=== PATIENT | male | born 1955 | race Caucasian/White ===

== ENCOUNTER 2016-12-02 08:51 | Outpatient (CLI) | payer BC ==
[2016-12-02] MEDS ORDERED: Gadobenate Dimeglumine 529 MG/1 ML (20ML VIAL) ONE (14:00)
--- NOTE | 2016-12-02 15:00 | MRI ---
BRAIN MRI WITH AND WITHOUT CONTRAST: COMPARISON: 11/02/16. CLINICAL HISTORY: Brain lab protocol. FINDINGS: Redemonstration of pathologic enhancement involving the medial right temporal lobe measuring 2.2 cm AP x 1.7 cm transverse. Developmental venous anomaly of the right parietooccipital region present. Cavitary encephalomalacia of the anterior pole right temporal lobe is redemonstrated with adjacent d ural-based enhancement, predominantly medially. A component of this linear enhancement may be relat ed to postoperative enhancement. IMPRESSION: Pathologic enhancement, intraaxial in location involving the medial right temporal lobe compatible w ith malignancy. This does reside adjacent postoperative resection cavity of the anterior pole right temporal lobe. POS: [facility]
== END 2016-12-02 08:52 | disposition home or self-care (01) ==
LOC: MRI 08:51
PROVIDERS: ATTEND Neurological Surgery
DX: C71.9 Malignant neoplasm of brain, unspecified (principal)
CPT/HCPCS: 70553; A9579

== ENCOUNTER 2017-08-09 08:31 | Outpatient (CLI) | payer BC ==
[2017-08-09] MEDS ORDERED: Gadobenate Dimeglumine 529 MG/1 ML (20ML VIAL) ONE (12:21)
--- NOTE | 2017-08-09 12:33 | MRI ---
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 Six month followup. COMPARISON: Brain MRI from [facility] [place] on 04/04/2017 and brain MRI from [facility] fro m 12/02/2016 and 11/02/2016. TECHNIQUE: A brain MRI is performed with and without intravenous Gadolinium administration. Multisequential, mu ltiplanar imaging is performed. FINDINGS: Axial gradient echo sequence demonstrates hemosiderin deposition at the resection site, compatible wi th remote blood products. Acute hemorrhage is not appreciated. There are stable post surgical mcgowan es involving the right calvarium. Redemonstration of fluid signal intensity just deep to the calvari al resection, compatible with nonspecific postoperative extraaxial fluid. There is redemonstration o f malacic and gliotic change involving the right temporal lobe. There is redemonstration of T2 and F LAIR hyperintensities involving the right femoral, temporal, and parietal white matter. Vasogenic ed hector as well as components of gliotic change are suspected. There is no midline shift. No evidence o f obstructing hydrocephalus. The left cerebrum is unremarkable. Post-contrast images demonstrate extensive dural enhancement at the operative site. Additional dural enhancement extends along the right frontal, temporal, and parietal convexities. The degree of dura l enhancement has not significantly changed when compared to the outside examination performed at [facility] [place]. There is increased enhancement involving the medial right temporal lobe. The largest focu s of enhancement is along the posterior-medial aspect of the right temporal lobe and abuts the right aspect of the paulina. Though there is mass effect upon the right aspect of the paulina, there is no evide nce of abnormal enhancement within the paulina. This focus of enhancement measures 2.9 x 3.3 cm. From the outside study performed at [facility] [place], this region of enhancement measured 2 x 1.4 cm. There is no evidence of mass effect upon the right aspect of the paulina at that time. An additional smaller ar ea of enhancement is noted along the anterior-medial aspect of the right temporal lobe. This area of enhancement is also increased in size and currently measures 1.3 x 1.4 cm (previously measuring 1.1 x 1.1 cm). There is a stable developmental venous anomaly in the right occipital lobe. IMPRESSION: 1. Enlarging, enhancing masses involving the right temporal lobe, with resultant mass effect upon th e right paulina. 2. Areas of enhancement involving the dura, compatible with post surgical change/scar. POS: [facility]
== END 2017-08-09 08:32 | disposition home or self-care (01) ==
LOC: SCSMRI 08:31
PROVIDERS: ATTEND Internal Medicine Hematology & Oncology
DX: C71.2 Malignant neoplasm of temporal lobe (principal)
CPT/HCPCS: 70553; A9579

== ENCOUNTER 2017-09-20 08:32 | Outpatient (CLI) | payer BC ==
--- NOTE | 2017-09-20 10:57 | MRI ---
PRE AND POST CONTRAST ENHANCED MRI BRAIN: 09/20/2017 HISTORY: Brain tumor. The patient received chemotherapy and radiation therapy followup. COMPARISON: 08/09/2017 TECHNIQUE: Pre and post contrast enhanced MRI of the brain were obtained. FINDINGS: Images demonstrate a previous right-sided pterional craniotomy. There has been surgical resection of much of the right temporal lobe. Areas of signal abnormality remain in the medial and posterior aspect of the right temporal lobe, com patible with residual tumor. There is definite enhancement in this area. Overall, the MRI appearanc e is not significantly changed. A dural based area of enhancement remains and extends into the right middle cranial fossa, medially, compatible with dural based residual tumor. Some encephalomalacic c hanges are also seen in the residual portions of the upper right temporal lobe. Signal abnormality a lso remains in the deep and periventricular white matter of the right frontal and parietal lobes. No definite evidence of contralateral extension is seen. IMPRESSION: Extensive surgical changes seen in the right middle cranial fossa with extensive residual neoplastic enhancement remaining. MRI appearance is stable. POS: [facility]
== END 2017-09-20 08:33 | disposition home or self-care (01) ==
LOC: MRI 08:32
PROVIDERS: ATTEND Internal Medicine Hematology & Oncology
DX: C71.2 Malignant neoplasm of temporal lobe (principal); Z98.890 Other specified postprocedural states
CPT/HCPCS: 70553

== ENCOUNTER 2017-11-02 02:58 | Inpatient (IN) | payer BC ==
[2017-11-02 03:26] LABS: Bilirubin Negative (Negative); Blood, Urine Negative (Negative); Clarity CLEAR (Clear); Glucose, Urine (Dipstick) Negative (Negative); Leukocyte Negative (Negative); Nitrite Negative (Negative); Protein, Urine (Dipstick) Negative (Neg-Trace); Specific Gravity, Urine 1.019 (1.002-1.036)
[2017-11-02 03:43] LABS: #Eosinphils 0.8 thou/uL (0.0-0.7); #Lymphocytes 1.1 thou/uL (1.20-3.40); #Monocytes 0.3 thou/uL (0.11-0.59); #Neutrophils 2.9 thou/uL (1.40-6.50); %Basophils 0.2 % (0.0-1.0); %Lymphocytes 20.8 % (21.0-51.0); %Monocytes 6.9 % (0.0-10.0); %Neutrophils 57.2 % (42.0-75.0); Hemoglobin 14.6 g/dL (14.0-18.0); Mean Corpuscular HGB CONC 32.8 g/dL (32.0-36.0); Mean Corpuscular Hemoglobin 30.6 pg (27.0-31.0); Mean Corpuscular Volume 93.3 fL (78.0-98.0); Mean Platelet Volume 6.5 fL (7.4-10.4); Platelet Count 290 thou/uL (130-400); RBC Distribution Width 12.1 % (11.5-14.5); Red Blood Cell (RBC) Count 4.78 mill/uL (4.70-6.10)
[2017-11-02 03:57] LABS: ALT (SGPT) 15 U/L (8-55); AST (SGOT) 16 U/L (5-34); Alkaline Phosphatase 50 U/L (40-150); Anion Gap 16 mmol/L (10-20); BUN (Urea Nitrogen) 23 mg/dL (8.4-25.7); Bilirubin, Total 0.7 mg/dL (0.2-1.2); Calc. Creatinine Clearance 0 mL/min (70-130); Calcium 9.6 mg/dL (7.8-10.44); Carbon Dioxide 21 mmol/L (23-31); Chloride 105 mmol/L (98-107); Estimated GFR-MDRD 53; Globulin 2.5 g/dL (2.4-3.5); Glucose 159 mg/dL (80-115); Potassium 3.6 mmol/L (3.5-5.1); Protein, Total 6.5 g/dL (5.8-8.1); Sodium 138 mmol/L (136-145)
--- NOTE | 2017-11-02 04:48 | PDOC.FPRHP ---
- History of Present Illness Chief Complaint: urinary problems History of Present Illness: Pt is a 62 yo M with pmh of glioblastoma s/p craniotomy x2 and several rounds of chemo and brain radiation. Pt presents for evaluation of urinary retention. Reports over last 3 weeks he has found progressive difficulty with urination. Pt reports urinary frequency and continued urgency after voiding. No incontinence. No dysuria or hematuria. Denies prostate problems in the past. Pt was hypotensive with SBP in 80s and 90s on presentation. Was given bolus IVF and pressures normalized. Pt reports being on increased doses of antihypertensives due to taking avastin chemo with htn side effect. He discontinued this med earlier in the month but continued his current htn meds. Glioblastoma- Pt dx in april 2015 over last 2 years has had 2 craniotomies and several rounds of chemo and radiation with most recent being avastin. Earlier this month pt and decided to discontinue treatment and pursue palliative measures. They have not decided on a hospice yet. Weakness- also complains of generalized weakness with concentration on the L. Reports onset was after several treatments of radiation to R side of brain for glioblastoma. ED Course: Rios cath- 850ml dark urine, UA- negative, bolus IVF - Allergies/Adverse Reactions Allergies Allergy/AdvReac Type Severity Reaction Status Date / Time No Known Drug Allergies Allergy Verified 04/28/15 03:16 - Home Medications Medication Instructions Recorded Confirmed Type Atorvastatin Calcium [Lipitor] 10 mg PO DAILY 04/28/15 11/02/17 History Levothyroxine Sodium 150 mcg PO DAILY 04/28/15 04/28/15 History Lisinopril/Hydrochlorothiazide 2 tab PO DAILY 04/28/15 04/28/15 History [Lisinopril-Hctz 10-12.5 mg Tab] Acetaminophen With Codeine 1 - 2 tablet PO Q4HR PRN 05/10/15 05/10/15 History [Tylenol with Codeine #3] Dexamethasone 4 mg PO DAILY 05/10/15 05/10/15 History levETIRAcetam [Keppra] 500 mg PO BID 05/10/15 05/10/15 History Acetaminophen W/ Codeine [Tylenol 1 tab PO Q6HR PRN 11/02/17 11/02/17 History #3] Aspirin [Ecotrin] 81 mg PO DAILY 11/02/17 11/02/17 History Famotidine [Pepcid] 20 mg PO BID PRN 11/02/17 11/02/17 History Hydrochlorothiazide 25 mg PO DAILY 11/02/17 11/02/17 History Levothyroxine [Synthroid] 150 mcg PO DAILY 11/02/17 11/02/17 History - History PMHx: glioblastoma, hypothyroidism, htn, IBS PSHx: Craniotomy x2, hernia repair FHx: none Social: occasional EtOH, denies tobacco and drugs - Review of Systems General: reports: fatigue. denies: fever/chills ENT: denies: nasal congestion, rhinorrhea Respiratory: denies: cough, congestion, shortness of breath Cardiovascular: denies: chest pain, palpitation Gastrointestinal: reports: nausea. denies: vomiting Genitourinary: reports: polyuria. denies: incontinence, dysuria Skin: denies: rashes, lesions Musculoskeletal: reports: pain. denies: stiffness Neurological: reports: weakness. denies: syncope, seizure - Vital signs BP: [100/80] HR: [90] RR: [20] Tmax: [97.9] Pox: [94]% on [RA] Wt: [106kg] - Physical Exam Constitutional: NAD, awake, alert and oriented HEENT: EOMI, grossly normal vision, grossly normal hearing, MMM Neck: no thyromegaly Chest: no-tender to palpation Heart: RRR, normal S1/S2 Lungs: CTAB, no respiratory distress, good air movement Abdomen: soft, non-tender, other (no suprapubic tenderness) Musculoskeletal: normal structure, normal tone Neurological: normal sensation Skin: no rash/lesions, good turgor Heme/Lymphatic: no purpura, no petechia Psychiatric: normal mood and affect, good judgment and insight Additional comment: Rectal exam: normal tone, no hemorrhoids, normal prostate without enlargement or nodules FMR H&P: Results - Labs Result Diagrams: 11/02/17 03:28 11/02/17 03:28 Lab results: WBC 5.0 thou/uL (4.8-10.8) 11/02/17 03:28 Hgb 14.6 g/dL (14.0-18.0) 11/02/17 03:28 Hct 44.6 % (42.0-52.0) 11/02/17 03:28 MCV 93.3 fL (78.0-98.0) 11/02/17 03:28 Plt Count 290 thou/uL (130-400) 11/02/17 03:28 Neutrophils % 57.2 % (42.0-75.0) 11/02/17 03:28 Sodium 138 mmol/L (136-145) 11/02/17 03:28 Potassium 3.6 mmol/L (3.5-5.1) 11/02/17 03:28 Chloride 105 mmol/L (98-107) 11/02/17 03:28 Carbon Dioxide 21 mmol/L (23-31) L 11/02/17 03:28 BUN 23 mg/dL (8.4-25.7) 11/02/17 03:28 Creatinine 1.37 mg/dL (0.6-1.3) H 11/02/17 03:28 Glucose 159 mg/dL (80-115) H 11/02/17 03:28 Calcium 9.6 mg/dL (7.8-10.44) 11/02/17 03:28 Total Bilirubin 0.7 mg/dL (0.2-1.2) 11/02/17 03:28 AST 16 U/L (5-34) 11/02/17 03:28 ALT 15 U/L (8-55) 11/02/17 03:28 Alkaline Phosphatase 50 U/L (40-150) 11/02/17 03:28 Serum Total Protein 6.5 g/dL (5.8-8.1) 11/02/17 03:28 Albumin 4.0 g/dL (3.4-4.8) 11/02/17 03:28 Urine Ketones Negative mg/dL (Negative) 11/02/17 03:17 Urine Blood Negative (Negative) 11/02/17 03:17 Urine Nitrite Negative (Negative) 11/02/17 03:17 Ur Leukocyte Esterase Negative (Negative) 11/02/17 03:17 FMR H&P: A/P - Problem List (1) Acute urinary retention Current Visit: Yes Status: Acute Code(s): R33.8 - OTHER RETENTION OF URINE (2) Generalized weakness Current Visit: Yes Status: Acute Code(s): R53.1 - WEAKNESS (3) Acute kidney injury Current Visit: Yes Status: Acute Code(s): N17.9 - ACUTE KIDNEY FAILURE, UNSPECIFIED (4) Glioblastoma multiforme Current Visit: No Status: Acute Code(s): C71.9 - MALIGNANT NEOPLASM OF BRAIN , UNSPECIFIED (5) Hypertension Current Visit: No Status: Acute Code(s): I10 - ESSENTIAL (PRIMARY) HYPERTENSION (6) Ileus Current Visit: No Status: Acute Code(s): K56.7 - ILEUS, UNSPECIFIED - Plan Acute Urinary Retention - Likely 2/2 neurogenic causes from chemo/radiation/tumor. s/p rios placement with 850 ml urine output. Possible neoplastic involvement of spinal cord. P- Lumbar MRI -review meds for iatrogenic causes Acute kidney injury A- likely secondary to obstructive uropathy P- PO hydration -repeat BMPs Hypotension A- Likely 2/2 medications vs. 850ml voiding s/p urinary cath. BPs have improved s/p IV fluid hydration. P- will hold antihypertensives -monitor BPs. Generalized weakness A- likely 2/2 Glioblastoma/treatment of P- PT/OT consult/treat History of Glioblastoma. - Pt and family discussing Palliative care/Hospice; consider formal palliative consult to assist with decision making. FMR H&P: Upper Level - Pertinent history Shane Downs is a 62 year old male with a history of glioblastoma multiforme who presents to the ED with one day history of urinary retention and several day history of weakness. Over the past two years, patient has undergone multiple treatments for GBM including craniotomies, chemo and radiation. Most recently, pt was started on Avastin from April until he self-discontinued treatment early this month. Of note, pt was found to be hypotensive in EMS with a SBP of 80s. He was given 200 cc NS by EMS and an additional 1L NS in the ED. BPs have not been hypotensive since being in the ED. He was started on new hypotensive medications recently by Oncology. - Pertinent findings Vitals: BP: 100/79 P: 93 RR: 20 T: 97.9 O2: 94% on RA Physical Exam: General:alert and oriented x 3 Heart:regular rate and rhythm, no murmurs, rubs, or gallops. Lungs:clear to auscultation bilaterally Neuro:CN II-XII intact grossly;No focal motor or sensory deficits; negative Babinski; no clonus. Extremities:Moves all extremities well; no lower extremity peripheral edema. Cr: 1.37 (baseline of 1.04 in 09/2017) Ca: 9.6 Lactic acid: 1.6 - Plan Date/Time: 11/02/17 0448 I, Franny Bergeron, have evaluated this patient and agree with findings/plan as outlined by sports marketing internship resident. Pertinent changes/additions are listed here. Acute Urinary Retention - s/p rios placement with 850 ml urine output. - in patient with history of cancer, will need to consider lumber MRI to evaluate for neoplastic involvement of spinal cord. - We will review pt's medications and check for possible causes. Acute kidney injury, likely secondary to obstructive uropathy - will continue to monitor kidney function with BMPs. Hypotension - BPs have improved s/p IV fluid hydration. - will hold antihypertensives and continue to monitor BPs. Generalized weakness - will order PT/OT to assess further. History of Glioblastoma. - Pt and family discussing Palliative care/Hospice; consider formal palliative consult to assist with decision making.
[2017-11-02] MEDS ORDERED: Sodium Chloride 0.9% 1,000 ML IV SCH (05:56)
[2017-11-02] MEDS ORDERED: Levothyroxine 150 MCG TAB PO SCH (07:00)
[2017-11-02] MEDS ORDERED: Senokot 8.6 MG TAB PO PRN (08:57)
[2017-11-02] MEDS ORDERED: Hydrochlorothiazide 25 MG TAB PO SCH (09:00)
--- NOTE | 2017-11-02 09:43 | HP ---
HISTORY OF PRESENT ILLNESS: I have discussed this case with Dr. Solis and agreed with his assessme nt and plan. Briefly, Mr. Downs is an unfortunate 62-year-old man with a several year history of glioblastoma st atus post several craniotomies and chemotherapies. Yesterday, he developed urinary retention and als o could not rise from the floor. EMS was called and he was subsequently brought to the ER where cath eterization placement revealed 150 mL of urine. He was admitted for further observation and treatmen t. PHYSICAL EXAMINATION: GENERAL: This morning, the patient seems slightly lethargic and slightly confused. He is, however, in no acute distress. VITAL SIGNS: His blood pressure is 130/80, pulse rate is 63 and regular, respirations are 18, his ro om air saturation is 96%. EAR, NOSE AND THROAT: scalp changes and skull changes consistent with previous craniotomies. NECK: Supple. CARDIAC: Heart rhythm regular, no gallop or murmur. LUNGS: Diminished, but clear without rales or wheezes. No distress. ABDOMEN: Flat and soft. LABORATORY DATA: CBC: White count is 5,000, hemoglobin 14.6 with hematocrit of 44.6. Chemistries: Sodium 138, potassium 3.6, chloride 105, bicarbonate 21, BUN 23, creatinine 1.37. Urinalysis negati ve for evidence of infection. ASSESSMENT AND PLAN: Acute urinary retention, this is likely a neurogenic bladder and for now, we wi ll just leave a Anand catheter in place. The patient and his are in discussions about palliativ e care and hospice.
[2017-11-02] MEDS: Docusate 100 MG CAP PO SCH ×2 (09:47→20:52)
[2017-11-02] MEDS: Acetaminophen/Codeine 30-300mg Tablet PO PRN ×2 (09:47→18:19)
[2017-11-02] MEDS: Atorvastatin Calcium 10 MG TAB PO SCH (09:49)
[2017-11-02] MEDS: Enoxaparin Sodium 40 MG/0.4 ML SYRINGE SC SCH (09:49)
[2017-11-02] MEDS: Aspirin 81 mg Enteric Coated Tablet PO SCH (09:49)
--- NOTE | 2017-11-02 11:33 | PDOC.EVN ---
Event Note - Event Note Event Note: S: Paged by nursing informing patient's wanted to speak with the primary team. Upon arrival to the room, patient's was confused regarding the plan of care and overwhelmed by the acute deterioration of the patient's condition. The patient and his state that the patient has had progressive weakness of his left side and she states she is no longer able to help him ambulate at home. They also state this is his first episode of urinary retention but that his outpatient oncologist states this could be a potential problem. His also states she has had difficulty arranging hospice care outpatient and she is very frustrated about it. I discussed the care plan with the patient and his at length. O: 4/5 strength left leg. rios bag in place draining clear urine A/P: - BELINDA on CKD2- will start IV LR at 100 mL/hr and will recheck BMP tomorrow morning - Glioblastoma multiforme- will have CM work on arranging outpatient hospice care and placement in and nursing home care facility. - Deconditioning 2/2 Glioblastoma- PT/OT to evaluate for placement - Neurogenic bladder- consult urology for recommendations on self cath vs. suprapubic catheter placement
[2017-11-02] MEDS: Lactated Ringer's 1,000 ML IV SCH ×2 (12:12→20:57)
[2017-11-02] MEDS: Tamsulosin HCl 0.4 MG CAP PO SCH (20:52)
[2017-11-02] MEDS: Famotidine 20 MG TAB PO PRN (20:52)
--- NOTE | 2017-11-03 00:46 | CON ---
DATE OF CONSULTATION: 11/02/2017 REASON FOR CONSULTATION: Urinary retention. REQUESTING PHYSICIAN: Brady Tobin M.D. HISTORY OF PRESENT ILLNESS: Mr. Downs is a 62-year-old male with history of glioblastoma status po st several craniotomies, radiation therapy, and rounds of chemotherapy. The patient developed progre ssive voiding difficulty over the past 2 weeks. He states he has had frequency and urgency of urinat ion as well as incontinence throughout the day. During the night, he reports over the past several w eeks he has had to get up every hour and a half or so. The patient yesterday developed significant l ower abdominal discomfort and was very weak. EMS was called and he was brought to the emergency depa rtment where Anand catheter was placed and the patient had a significant residual urine within his bl adder. The patient was admitted for further observation and treatment. Currently, the patient is feeling better. He reports his abdominal pain has improved. No gross comfort turia. The patient denies ever seeing urologist in the past. No procedures on the prostate in the p ast. No family history of genitourinary malignancy to his knowledge. He states that he recently has had conversations with his oncologist and primary care doctor that he did not desire further radiati on or chemotherapy at this time. REVIEW OF SYSTEMS: Full 12-point review of systems was performed and is negative other than that men tioned in the HPI. PAST MEDICAL HISTORY: 1. Glioblastoma. 2. Hypothyroidism. 3. Hypertension. 4. IBS. PAST SURGICAL HISTORY: 1. Craniotomy x2. 2. Hernia repair. FAMILY HISTORY: Noncontributory. SOCIAL HISTORY: Occasional alcohol. No tobacco or drugs. 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 PHYSICAL EXAMINATION: VITAL SIGNS: Temperature is 98.1, blood pressure 121/83, pulse 74, respirations 16, oxygen saturatio n 94% on room air. GENERAL: Awake, alert, in no apparent distress. HEENT: Normocephalic, atraumatic. NECK: Supple, no mass or lymphadenopathy. CARDIOVASCULAR: Regular rate and rhythm. PULMONARY: Breathing unlabored, no wheezing. ABDOMEN: Soft, nontender/nondistended, no masses or organomegaly, no suprapubic tenderness to palpat ion, no CVA tenderness. GENITOURINARY: Anand catheter in place, draining clear yellow urine, normal circumcised penis withou t concerning lesion, scrotum normal, testes palpably normal bilaterally. EXTREMITIES: Warm and well perfused, no edema. NEUROLOGIC: No focal deficits. LABORATORY DATA: Sodium 138, potassium 3.6, chloride 105, bicarbonate 21, BUN 23, creatinine 1.37, g lucose 159. ASSESSMENT: A 62-year-old male with urinary retention, stage IV glioblastoma. PLAN: I discussed the natural history of urinary retention with the patient and his son in detail. I discussed potential etiologies including bladder outlet obstruction from an enlarged prostate as we ll as neurogenic bladder secondary to current brain lesions. Recommend starting tamsulosin daily. W e will leave Anand catheter in place at this time. The patient actually desires that the Anand marcelle ter be left indefinitely at this point. I explained that certainly is not unreasonable given his sev ere urinary symptoms at home prior to his presentation here as well as difficulty getting to and from the bathroom. He should continue tamsulosin as an outpatient. We will schedule the patient outpati ent followup with Urology for further discussion of additional workup of his urinary retention versus leaving an indwelling Anand catheter. Thank you for allowing me to participate in the care of this patient.
[2017-11-03 05:04] LABS: Anion Gap 12 mmol/L (10-20); BUN (Urea Nitrogen) 17 mg/dL (8.4-25.7); Calc. Creatinine Clearance 121 mL/min (70-130); Calcium 8.6 mg/dL (7.8-10.44); Carbon Dioxide 23 mmol/L (23-31); Chloride 104 mmol/L (98-107); Estimated GFR-MDRD 80; Glucose 138 mg/dL (80-115); Potassium 3.6 mmol/L (3.5-5.1); Sodium 135 mmol/L (136-145)
[2017-11-03] MEDS: Acetaminophen/Codeine 30-300mg Tablet PO PRN ×2 (05:27→20:19)
[2017-11-03] MEDS: Levothyroxine 150 MCG TAB PO SCH (05:27)
--- NOTE | 2017-11-03 06:12 | PDOC.FM ---
- Subjective Subjective: Still feeling constipated this morning. Otherwise no complaints. Working towards Hospice placement. Saw urology Dr. Madrigal yesterday. Ate and drank well yesterday. - Objective Vital Signs & Weight: Vital Signs (12 hours) Temp Pulse Resp BP Pulse Ox 11/02/17 20:00 98.5 F 81 18 107/80 94 L Weight Weight 106.254 kg I&O: 11/01/17 11/02/17 11/03/17 06:59 06:59 06:59 Intake Total 920 Output Total 575 Balance 345 Result Diagrams: 11/02/17 03:28 11/03/17 03:59 Phys Exam - Physical Examination Constitutional: NAD HEENT: PERRLA, sclera anicteric Neck: supple +nodes Respiratory: no wheezing, clear to auscultation bilateral Cardiovascular: RRR, no significant murmur Gastrointestinal: soft, non-tender, positive bowel sounds Musculoskeletal: no edema, pulses present 4/5 executive vice president business development strength on LUE Psychiatric: normal affect, A&O x 3 Skin: normal turgor, cap refill <2 seconds Dx/Plan (1) Acute kidney injury Code(s): N17.9 - ACUTE KIDNEY FAILURE, UNSPECIFIED Status: Resolved (2) Acute urinary retention Code(s): R33.8 - OTHER RETENTION OF URINE Status: Acute (3) Generalized weakness Code(s): R53.1 - WEAKNESS Status: Acute (4) Constipation Code(s): K59.00 - CONSTIPATION, UNSPECIFIED Status: Chronic (5) Glioblastoma multiforme Code(s): C71.9 - MALIGNANT NEOPLASM OF BRAIN, UNSPECIFIED Status: Chronic (6) Hypothyroid Code(s): E03.9 - HYPOTHYROIDISM, UNSPECIFIED Status: Chronic - Plan Plan: 62 yo M with PMH of Glioblastoma s/p craniotomy and chemotherapy presents for weakness and acute urinary retention. Acute Urinary Retention - Likely 2/2 neurogenic causes from chemo/radiation/tumor. s/p rios placement with 850 ml urine output. - Urology, Dr Madrigal consulted, recs appreciated -recommends flomax, continue rios at this time, outpatient follow up Generalized weakness - likely 2/2 Glioblastoma or hypothyroidism/iatrogenic - TSH was low at .036 - Free T4 and T3 pending - PT/OT consulted - Hospice consulted and helping with patient placement Hypothyroidism -currently on 150 mcg levothyroxine -see above Constipation -Add senna-doc today, consider enema if patient still unable to have BM Acute kidney injury, resolved - likely secondary to obstructive uropathy - resolved with rios catheterization and fluid resuscitation Hypotension - Likely 2/2 medications vs. 850ml voiding s/p urinary cath. BPs have improved s /p IV fluid hydration. - continue to monitor BPs. History of Glioblastoma. - Pt and family desiring Hospice placement - Hospice consulted
[2017-11-03 07:12] LABS: Free T4 (Free Thyroxine) 1.02 ng/dL (0.70-1.48)
[2017-11-03] MEDS: Atorvastatin Calcium 10 MG TAB PO SCH (09:02)
[2017-11-03] MEDS: Docusate 100 MG CAP PO SCH ×2 (09:02→20:03)
[2017-11-03] MEDS: Aspirin 81 mg Enteric Coated Tablet PO SCH (09:02)
[2017-11-03] MEDS: Lactated Ringer's 1,000 ML IV SCH (09:03)
[2017-11-03] MEDS: Enoxaparin Sodium 40 MG/0.4 ML SYRINGE SC SCH (09:03)
--- NOTE | 2017-11-03 11:27 | ADD-PRG ---
DATE OF SERVICE: 11/03/2017 This is an addendum to the note of Dr. Araceli Christianson. SUBJECTIVE: Mr. Downs was seen yesterday by the Urology Service. For now, he has elected to krystal nue with his Anand catheter and Flomax was added. He can follow up with the urologist after discharg e if he wishes a different or further treatment for his urinary retention, which is likely a permanen t feature now. In the event, he is otherwise resting comfortably and we are awaiting hospice and/or SNF placement.
[2017-11-03] MEDS ORDERED: Senokot S 8.6-50 MG TAB PO SCH ×2 (12:00→21:00)
[2017-11-03] MEDS: Tamsulosin HCl 0.4 MG CAP PO SCH (20:03)
[2017-11-03] MEDS ORDERED: Artificial Tears 18 DROP/0.9 ML EA EYE PRN (22:37)
[2017-11-03] MEDS: Ibuprofen 200 MG TAB PO PRN (23:19)
[2017-11-04] MEDS: Levothyroxine 150 MCG TAB PO SCH (06:21)
--- NOTE | 2017-11-04 06:51 | PDOC.FM ---
- Subjective Subjective: Per nurse, no acute events overnight. Pt has no complaints. Had BM x1 yesterday. Denies abdominal pain, dysuria, pain. - Objective MAR Reviewed: Yes Vital Signs & Weight: Vital Signs (12 hours) Temp Pulse Resp BP Pulse Ox 11/03/17 20:25 94 L 11/03/17 20:00 98.3 F 81 18 132/75 94 L Weight Weight 106.254 kg I&O: 11/02/17 11/03/17 11/04/17 06:59 06:59 06:59 Intake Total 2470 1260 Output Total 1675 1250 Balance 795 10 Result Diagrams: 11/02/17 03:28 11/03/17 03:59 <Kat Green - Last Filed: 11/04/17 07:57> - Objective Vital Signs & Weight: Vital Signs (12 hours) Temp Pulse Resp BP Pulse Ox 11/04/17 07:39 94 L 11/04/17 07:29 98.7 F 68 18 117/80 94 L Weight Weight 106.254 kg I&O: 11/03/17 11/04/17 11/05/17 06:59 06:59 06:59 Intake Total 2470 1260 Output Total 1675 1250 Balance 795 10 Result Diagrams: 11/02/17 03:28 11/04/17 07:50 <Yakov Ramirez - Last Filed: 11/04/17 10:34> Phys Exam - Physical Examination Constitutional: NAD HEENT: moist MMs, sclera anicteric Neck: full ROM Respiratory: no wheezing, no rales Cardiovascular: RRR, no significant murmur Gastrointestinal: soft, non-tender, no distention Musculoskeletal: pulses present Neurological: non-focal, moves all 4 limbs Psychiatric: normal affect, A&O x 3 Skin: normal turgor, cap refill <2 seconds <Kat Green - Last Filed: 11/04/17 07:57> Dx/Plan (1) Acute urinary retention Code(s): R33.8 - OTHER RETENTION OF URINE Status: Acute (2) Generalized weakness Code(s): R53.1 - WEAKNESS Status: Acute (3) Acute kidney injury Code(s): N17.9 - ACUTE KIDNEY FAILURE, UNSPECIFIED Status: Resolved (4) Hypertension Code(s): I10 - ESSENTIAL (PRIMARY) HYPERTENSION Status: Acute (5) Constipation Code(s): K59.00 - CONSTIPATION, UNSPECIFIED Status: Chronic (6) Glioblastoma multiforme Code(s): C71.9 - MALIGNANT NEOPLASM OF BRAIN, UNSPECIFIED Status: Chronic (7) Hypothyroid Code(s): E03.9 - HYPOTHYROIDISM, UNSPECIFIED Status: Chronic - Plan Plan: Acute urinary retention 2/2 neurogenic etiology vs. outlet obstruction -currently resolved with rios and flomax -hx of GBM s/p several rounds of chemo and radiation -seen by Urology, recs are appreciated: rx outpt f/u for further of AUR w/u vs. intermediate project manager indwelling rios BELINDA 2/2 ARU, resolved -trend BMP today Constipation -possibly neurogenic in context of new onset AUR -able to have BM yesterday -continue senekot Deconditioning 2/2 GBM -PT rx continuation of PT and OT in hospice Hx of Glioblastoma multiforme -pt has decided on palliative care, awaiting placement -social work consulted -prn pain meds -oncologist was notified Subclinical hypothryoidism -continue synthroid HLD -atorvastatin, ASA dvt ppx: lovenox gi ppx: famotidine dispo: pending hospice placement <Kat Green - Last Filed: 11/04/17 07:57> Attending Addendum - Attending Addendum Date/Time: 11/04/17 1033 I personally evaluated the patient and discussed the management with Dr. Green I agree with the History, Examination, Assessment and Plan documented above with any addition or exceptions noted below. Care plan discussed with patient and family. Blood pressure stable off rx at this time appreciate Urology recommendations. <Yakov Ramirez - Last Filed: 11/04/17 10:34>
[2017-11-04] MEDS: Acetaminophen/Codeine 30-300mg Tablet PO PRN ×2 (08:16→15:51)
[2017-11-04] MEDS: Atorvastatin Calcium 10 MG TAB PO SCH (08:17)
[2017-11-04] MEDS: Enoxaparin Sodium 40 MG/0.4 ML SYRINGE SC SCH (08:17)
[2017-11-04] MEDS: Docusate 100 MG CAP PO SCH ×2 (08:17→20:17)
[2017-11-04] MEDS: Aspirin 81 mg Enteric Coated Tablet PO SCH (08:17)
[2017-11-04 08:24] LABS: Anion Gap 11 mmol/L (10-20); BUN (Urea Nitrogen) 11 mg/dL (8.4-25.7); Calc. Creatinine Clearance 140 mL/min (70-130); Calcium 8.5 mg/dL (7.8-10.44); Carbon Dioxide 22 mmol/L (23-31); Chloride 107 mmol/L (98-107); Estimated GFR-MDRD Greater than 90; Glucose 104 mg/dL (80-115); Potassium 3.7 mmol/L (3.5-5.1); Sodium 136 mmol/L (136-145)
--- NOTE | 2017-11-04 18:24 | EKG ---
Test Reason : Blood Pressure : / mmHG Vent. Rate : 085 BPM Atrial Rate : 085 BPM P-R Int : 168 ms QRS Dur : 104 ms QT Int : 402 ms P-R-T Axes : 014 -25 031 degrees QTc Int : 478 ms Normal sinus rhythm Inferior infarct , age undetermined Abnormal ECG Confirmed by MARCIE INGRAM, BLANCA Mariee ([id number]), video tape editor OFE TAYLOR ([id number]) on 11/04/2017 6:24:26 PM Referred By: Confirmed By:BLANCA JACK MD
[2017-11-04] MEDS: Tamsulosin HCl 0.4 MG CAP PO SCH (20:17)
[2017-11-04] MEDS: Famotidine 20 MG TAB PO PRN (20:17)
[2017-11-04] MEDS: Ibuprofen 200 MG TAB PO PRN (20:17)
[2017-11-05] MEDS: Levothyroxine 150 MCG TAB PO SCH (05:58)
[2017-11-05] MEDS ORDERED: Senokot 8.6 MG TAB PO PRN (06:16)
--- NOTE | 2017-11-05 06:17 | PDOC.FM ---
- Subjective Subjective: No acute events overnight. Yesterday was having bladder fullness but adjusted rios which resolved. Currently denies dysuria, issues voiding, fevers, chills. No complaints at this time. - Objective MAR Reviewed: Yes Vital Signs & Weight: Vital Signs (12 hours) Temp Pulse Resp BP Pulse Ox 11/04/17 20:00 98.1 F 81 20 138/85 96 11/04/17 19:33 94 L Weight Weight 106.254 kg I&O: 11/03/17 11/04/17 11/05/17 06:59 06:59 06:59 Intake Total 2470 1260 600 Output Total 1675 1250 950 Balance 795 10 -350 Result Diagrams: 11/02/17 03:28 11/04/17 07:50 <Kat Green - Last Filed: 11/05/17 07:54> - Objective Vital Signs & Weight: Vital Signs (12 hours) Temp Pulse Resp BP Pulse Ox 11/05/17 08:01 96 11/05/17 08:00 97.8 F 74 16 139/87 96 Weight Weight 106.254 kg I&O: 11/04/17 11/05/17 11/06/17 06:59 06:59 06:59 Intake Total 1260 600 Output Total 1250 950 Balance 10 -350 Result Diagrams: 11/02/17 03:28 11/04/17 07:50 <Yakov Ramirez - Last Filed: 11/05/17 11:57> Phys Exam - Physical Examination Constitutional: NAD HEENT: moist MMs, sclera anicteric Respiratory: no wheezing, clear to auscultation bilateral Cardiovascular: RRR, no significant murmur Gastrointestinal: soft, non-tender, no distention Musculoskeletal: no edema, pulses present Neurological: non-focal decreased motor in LUE AND LLE Psychiatric: normal affect, A&O x 3 Skin: normal turgor, cap refill <2 seconds <Kat Green - Last Filed: 11/05/17 07:54> Dx/Plan (1) Acute urinary retention Code(s): R33.8 - OTHER RETENTION OF URINE Status: Acute (2) Generalized weakness Code(s): R53.1 - WEAKNESS Status: Acute (3) Acute kidney injury Code(s): N17.9 - ACUTE KIDNEY FAILURE, UNSPECIFIED Status: Resolved (4) Hypertension Code(s): I10 - ESSENTIAL (PRIMARY) HYPERTENSION Status: Acute (5) Constipation Code(s): K59.00 - CONSTIPATION, UNSPECIFIED Status: Chronic (6) Glioblastoma multiforme Code(s): C71.9 - MALIGNANT NEOPLASM OF BRAIN, UNSPECIFIED Status: Chronic (7) Hypothyroid Code(s): E03.9 - HYPOTHYROIDISM, UNSPECIFIED Status: Chronic - Plan Plan: Acute urinary retention 2/2 neurogenic etiology vs. outlet obstruction -currently resolved with rios and flomax -hx of GBM s/p several rounds of chemo and radiation -seen by urology: pt elected to keep rios with addition of flomax. urinary retention likely a chronic feature now. can f/u outpt uro if desires further workup or change in mgmt. BELINDA 2/2 ARU, resolved -BMP from 11/04: gfr >90, creatinine at baseline at <1 -I/O, negative balance due to dec po intake. encouraged po intake. pt agreed to drink at least 8-10 8oz glasses today. If continues to experience negative fluid balance, consider restarting on mIVF Constipation -possibly neurogenic in context of new onset AUR -able to have BM yesterday -added senekot Deconditioning 2/2 GBM -PT rx continuation of PT and OT in hospice Hx of Glioblastoma multiforme -pt has decided on palliative care, awaiting placement -social work consulted -prn pain meds -oncologist was notified Subclinical hypothryoidism -continue synthroid HLD -atorvastatin, ASA dvt ppx: lovenox gi ppx: famotidine dispo: pending approval at [facility] <Kat Green - Last Filed: 11/05/17 07:54> Attending Addendum - Attending Addendum Date/Time: 11/05/17 0469 I personally evaluated the patient and discussed the management with Dr. Green I agree with the History, Examination, Assessment and Plan documented above with any addition or exceptions noted below.Patient to start transition to palliative care he is stable for transfer to hospice bed and patient and family counseled. <Yakov Ramirez - Last Filed: 11/05/17 11:57>
[2017-11-05] MEDS: Enoxaparin Sodium 40 MG/0.4 ML SYRINGE SC SCH (08:01)
[2017-11-05] MEDS: Atorvastatin Calcium 10 MG TAB PO SCH (08:01)
[2017-11-05] MEDS: Docusate 100 MG CAP PO SCH ×2 (08:01→20:05)
[2017-11-05] MEDS: Aspirin 81 mg Enteric Coated Tablet PO SCH (08:01)
[2017-11-05] MEDS: Ondansetron HCl/PF 4 MG/2 ML Vial IVP PRN ×2 (08:33→21:28)
[2017-11-05] MEDS: Acetaminophen/Codeine 30-300mg Tablet PO PRN ×2 (10:56→20:04)
[2017-11-05] MEDS: Ibuprofen 200 MG TAB PO PRN (14:32)
[2017-11-05] MEDS: Tamsulosin HCl 0.4 MG CAP PO SCH (20:05)
[2017-11-06] MEDS: Levothyroxine 150 MCG TAB PO SCH (05:27)
--- NOTE | 2017-11-06 06:06 | PDOC.FM ---
- Subjective Subjective: No overnight events. Pt reports vomiting but nausea is improved with Zofran. Denies pain, chest pain, SOB. No other concerns. - Objective MAR Reviewed: Yes Vital Signs & Weight: Vital Signs (12 hours) Temp Pulse Resp BP Pulse Ox 11/05/17 20:00 96 11/05/17 19:27 97.8 F 71 20 140/89 71 L Weight Weight 106.254 kg I&O: 11/04/17 11/05/17 11/06/17 06:59 06:59 06:59 Intake Total 1260 600 480 Output Total 0216 426 8300 Balance 10 -350 -1920 Result Diagrams: 11/02/17 03:28 11/04/17 07:50 <Nerissa Hsu - Last Filed: 11/06/17 09:24> - Objective Vital Signs & Weight: Vital Signs (12 hours) Temp Pulse Resp BP Pulse Ox 11/06/17 08:16 98.3 F 73 20 135/94 H 95 Weight Weight 106.254 kg I&O: 11/05/17 11/06/17 11/07/17 06:59 06:59 06:59 Intake Total 600 980 Output Total 950 3700 Balance -350 -2720 Result Diagrams: 11/02/17 03:28 11/04/17 07:50 <Kylie Muñoz - Last Filed: 11/06/17 17:19> Phys Exam - Physical Examination Constitutional: NAD Neck: supple Respiratory: no wheezing, clear to auscultation bilateral Cardiovascular: RRR, no significant murmur Gastrointestinal: soft, non-tender, positive bowel sounds 4/5 weakness of left UE Psychiatric: normal affect, A&O x 3 <Nerissa Hsu - Last Filed: 11/06/17 09:24> Dx/Plan (1) Acute urinary retention Code(s): R33.8 - OTHER RETENTION OF URINE Status: Acute (2) Generalized weakness Code(s): R53.1 - WEAKNESS Status: Acute (3) Hypertension Code(s): I10 - ESSENTIAL (PRIMARY) HYPERTENSION Status: Acute (4) Hyponatremia Code(s): E87.1 - HYPO-OSMOLALITY AND HYPONATREMIA Status: Acute (5) Ileus Code(s): K56.7 - ILEUS, UNSPECIFIED Status: Acute (6) Constipation Code(s): K59.00 - CONSTIPATION, UNSPECIFIED Status: Chronic (7) Glioblastoma multiforme Code(s): C71.9 - MALIGNANT NEOPLASM OF BRAIN, UNSPECIFIED Status: Chronic (8) Hypothyroid Code(s): E03.9 - HYPOTHYROIDISM, UNSPECIFIED Status: Chronic - Plan Plan: Acute urinary retention 2/2 neurogenic etiology vs. outlet obstruction - Currently resolved with rios and flomax - hx of GBM s/p several rounds of chemo and radiation - Seen by urology: pt elected to keep rios with addition of flomax. urinary retention likely a chronic feature now. - Can f/u outpt uro if desires further workup or change in mgmt. HTN - Currently controlled with home lisinopril- HCTZ held Constipation - Possibly neurogenic in context of new onset AUR - Continue colace, senokot Deconditioning 2/2 GBM - PT recommends continuation of PT/OT in hospice Hx of Glioblastoma multiforme - Pt has decided on hospice care, awaiting placement - Social work consulted - PRN pain meds - Oncologist was notified Subclinical hypothryoidism - Continue synthroid HLD - Continue home Atorvastatin, ASA - Consider stopping Atorvastatin, studies show pts with cancer live longer in hospice when taken off Statins BELINDA 2/2 ARU, resolved - BMP from 11/04: gfr >90, creatinine at baseline at <1 - I/O, negative balance due to dec po intake. encouraged po intake. pt agreed to drink at least 8-10 8oz glasses today. If continues to experience negative fluid balance, consider restarting on mIVF DVT ppx: lovenox GI ppx: famotidine Code Status: DNR Dispo: pending placement, [facility] <Nerissa Hsu - Last Filed: 11/06/17 09:24> Attending Addendum - Attending Addendum Date/Time: 11/06/17 2133 I personally evaluated the patient and discussed the management with Dr. Hsu. I agree with the History, Examination, Assessment and Plan documented above with any addition or exceptions noted below. The patient's was concerned about removing the patient's rios. Urology notes indicated pt wanted to keep the rios. Will help family discuss with urology. Waiting on placement. <Kylie Muñoz - Last Filed: 11/06/17 17:19>
[2017-11-06] MEDS: Enoxaparin Sodium 40 MG/0.4 ML SYRINGE SC SCH (08:05)
[2017-11-06] MEDS: Atorvastatin Calcium 10 MG TAB PO SCH (08:05)
[2017-11-06] MEDS: Aspirin 81 mg Enteric Coated Tablet PO SCH (08:05)
[2017-11-06] MEDS: Docusate 100 MG CAP PO SCH ×2 (08:06→20:07)
[2017-11-06] MEDS: Ondansetron HCl/PF 4 MG/2 ML Vial IVP PRN (08:37)
[2017-11-06] MEDS: Acetaminophen/Codeine 30-300mg Tablet PO PRN ×2 (12:13→18:08)
[2017-11-06] MEDS: Tamsulosin HCl 0.4 MG CAP PO SCH (20:07)
[2017-11-07] MEDS: Famotidine 20 MG TAB PO PRN ×2 (02:14→20:39)
[2017-11-07] MEDS: Levothyroxine 150 MCG TAB PO SCH (05:55)
--- NOTE | 2017-11-07 06:35 | PDOC.FM ---
- Subjective Subjective: No overnight events. Denies pain, nausea/vomiting, chest pain, SOB. Reports there are issues with his insurance and the nursing facility he had planned to be discharged to. After speaking with Urologist on the phone yesterday feels comfortable with decision to leave with rios catheter. No other concerns. - Objective MAR Reviewed: Yes Vital Signs & Weight: Vital Signs (12 hours) Temp Pulse Resp BP Pulse Ox 11/06/17 20:00 98.4 F 76 18 132/90 94 L Weight Weight 106.254 kg I&O: 11/05/17 11/06/17 11/07/17 06:59 06:59 06:59 Intake Total 930 938 9452 Output Total 950 3700 2099 Balance -350 -8985 -1099 Result Diagrams: 11/02/17 03:28 11/04/17 07:50 <Nerissa Hsu - Last Filed: 11/07/17 08:53> - Objective Vital Signs & Weight: Vital Signs (12 hours) Temp Pulse Resp BP Pulse Ox 11/08/17 09:09 96 11/08/17 08:00 98.4 F 73 16 136/85 96 Weight Weight 106.254 kg I&O: 11/07/17 11/08/17 11/09/17 06:59 06:59 06:59 Intake Total 1000 960 Output Total 2100 1900 1999 Balance -1100 -600 Result Diagrams: 11/02/17 03:28 11/04/17 07:50 <Kylie Muñoz - Last Filed: 11/08/17 17:17> Phys Exam - Physical Examination Constitutional: NAD Neck: supple Cardiovascular: RRR, no significant murmur Gastrointestinal: soft, non-tender, positive bowel sounds Musculoskeletal: pulses present Psychiatric: normal affect, A&O x 3 <Nerissa Hsu - Last Filed: 11/07/17 08:53> Dx/Plan (1) Acute urinary retention Code(s): R33.8 - OTHER RETENTION OF URINE Status: Acute (2) Generalized weakness Code(s): R53.1 - WEAKNESS Status: Acute (3) Hypertension Code(s): I10 - ESSENTIAL (PRIMARY) HYPERTENSION Status: Acute (4) Hyponatremia Code(s): E87.1 - HYPO-OSMOLALITY AND HYPONATREMIA Status: Acute (5) Ileus Code(s): K56.7 - ILEUS, UNSPECIFIED Status: Acute (6) Constipation Code(s): K59.00 - CONSTIPATION, UNSPECIFIED Status: Chronic (7) Glioblastoma multiforme Code(s): C71.9 - MALIGNANT NEOPLASM OF BRAIN, UNSPECIFIED Status: Chronic (8) Hypothyroid Code(s): E03.9 - HYPOTHYROIDISM, UNSPECIFIED Status: Chronic - Plan Plan: Acute urinary retention 2/2 neurogenic etiology vs. outlet obstruction - Currently resolved with rios and flomax - hx of GBM s/p several rounds of chemo and radiation - Seen by urology: pt elected to keep rios with addition of flomax. - Urology will stop by to speak with today and discuss plan/goals of care in regards to leaving rios in at discharge, will need to f/u outpt HTN - Currently controlled with home lisinopril- HCTZ held Constipation - Possibly neurogenic in context of new onset AUR - Continue colace, senokot Deconditioning 2/2 GBM - PT recommends continuation of PT/OT in hospice Hx of Glioblastoma multiforme - Pt has decided on hospice care, awaiting placement - Social work consulted - PRN pain meds - Oncologist was notified Subclinical hypothryoidism - Continue synthroid HLD - Continue home Atorvastatin, ASA - Consider stopping Atorvastatin, studies show pts with cancer live longer in hospice when taken off Statins BELINDA 2/2 ARU, resolved - BMP from 11/04: gfr >90, creatinine at baseline at <1 - I/O, negative balance due to dec po intake. encouraged po intake. pt agreed to drink at least 8-10 8oz glasses today. If continues to experience negative fluid balance, consider restarting on mIVF DVT ppx: lovenox GI ppx: famotidine Code Status: DNR Dispo: pending placement, [facility] <Nerissa Hsu - Last Filed: 11/07/17 08:53> Attending Addendum - Attending Addendum Date/Time: 11/07/17 1116 I personally evaluated the patient and discussed the management with Dr. Hsu. I agree with the History, Examination, Assessment and Plan documented above with any addition or exceptions noted below. No family was in the room with the patient during my visit. He expressed wishes for hospice but that may not be feasable at this time with pt's finances. Will work with case mgmt for discharge planning. <Kylie Muñoz - Last Filed: 11/08/17 17:17>
[2017-11-07] MEDS: Docusate 100 MG CAP PO SCH ×2 (10:00→20:36)
[2017-11-07] MEDS: Aspirin 81 mg Enteric Coated Tablet PO SCH (10:00)
[2017-11-07] MEDS: Atorvastatin Calcium 10 MG TAB PO SCH (10:00)
[2017-11-07] MEDS: Enoxaparin Sodium 40 MG/0.4 ML SYRINGE SC SCH (10:00)
[2017-11-07] MEDS: Acetaminophen/Codeine 30-300mg Tablet PO PRN ×2 (12:15→22:19)
[2017-11-07] MEDS: Tamsulosin HCl 0.4 MG CAP PO SCH (20:36)
[2017-11-07] MEDS: Ondansetron HCl/PF 4 MG/2 ML Vial IVP PRN (20:39)
[2017-11-08] MEDS: Levothyroxine 150 MCG TAB PO SCH (05:23)
--- NOTE | 2017-11-08 05:59 | PDOC.FM ---
- Objective MAR Reviewed: Yes Vital Signs & Weight: Vital Signs (12 hours) Temp Pulse Resp BP Pulse Ox 11/07/17 20:03 98.0 F 83 17 133/90 94 L 11/07/17 20:00 94 L Weight Weight 106.254 kg I&O: 11/06/17 11/07/17 11/08/17 06:59 06:59 06:59 Intake Total 980 1000 960 Output Total 3700 2100 1900 Balance -8360 -1099 0 Result Diagrams: 11/02/17 03:28 11/04/17 07:50 <Nerissa Hsu - Last Filed: 11/08/17 05:55> - Subjective Subjective: The patient had no events overnight. Waiting on SNF approval at the [facility]. - Objective Vital Signs & Weight: Vital Signs (12 hours) Temp Pulse Resp BP Pulse Ox 11/08/17 09:09 96 11/08/17 08:00 98.4 F 73 16 136/85 96 Weight Weight 106.254 kg I&O: 11/07/17 11/08/17 11/09/17 06:59 06:59 06:59 Intake Total 1000 960 Output Total 2100 1900 1999 Balance -1099 Result Diagrams: 11/02/17 03:28 11/04/17 07:50 <Kylie Muñoz - Last Filed: 11/08/17 17:22> Dx/Plan (1) Acute urinary retention Code(s): R33.8 - OTHER RETENTION OF URINE Status: Acute (2) Generalized weakness Code(s): R53.1 - WEAKNESS Status: Acute (3) Hypertension Code(s): I10 - ESSENTIAL (PRIMARY) HYPERTENSION Status: Acute (4) Hyponatremia Code(s): E87.1 - HYPO-OSMOLALITY AND HYPONATREMIA Status: Acute (5) Ileus Code(s): K56.7 - ILEUS, UNSPECIFIED Status: Acute (6) Constipation Code(s): K59.00 - CONSTIPATION, UNSPECIFIED Status: Chronic (7) Glioblastoma multiforme Code(s): C71.9 - MALIGNANT NEOPLASM OF BRAIN, UNSPECIFIED Status: Chronic (8) Hypothyroid Code(s): E03.9 - HYPOTHYROIDISM, UNSPECIFIED Status: Chronic - Plan Plan: Acute urinary retention 2/2 neurogenic etiology vs. outlet obstruction - Currently resolved with rios and flomax - hx of GBM s/p several rounds of chemo and radiation - Seen by urology: pt elected to keep rios with addition of flomax. HTN - Currently controlled with home lisinopril- HCTZ held Constipation - Possibly neurogenic in context of new onset AUR - Continue colace, senokot Deconditioning 2/2 GBM - PT recommends continuation of PT/OT in hospice Hx of Glioblastoma multiforme - Pt has decided on hospice care, awaiting placement - Social work consulted - PRN pain meds - Oncologist was notified Subclinical hypothryoidism - Continue synthroid HLD - Continue home Atorvastatin, ASA - Consider stopping Atorvastatin, studies show pts with cancer live longer in hospice when taken off Statins BELINDA 2/2 ARU, resolved - BMP from 11/04: gfr >90, creatinine at baseline at <1 - I/O, negative balance due to dec po intake. encouraged po intake. pt agreed to drink at least 8-10 8oz glasses today. If continues to experience negative fluid balance, consider restarting on mIVF DVT ppx: lovenox GI ppx: famotidine Code Status: DNR Dispo: pending placement <Nerissa Hsu - Last Filed: 11/08/17 05:55> Attending Addendum - Attending Addendum Date/Time: 11/08/17 1721 I personally evaluated the patient and discussed the management with Dr. Hsu. I agree with the History, Examination, Assessment and Plan documented above with any addition or exceptions noted below. Pt is stable. Waiting on [facility]. Continue supportive care. <Kylie Muñoz - Last Filed: 11/08/17 17:22>
[2017-11-08] MEDS: Enoxaparin Sodium 40 MG/0.4 ML SYRINGE SC SCH (08:59)
[2017-11-08] MEDS: Docusate 100 MG CAP PO SCH ×2 (08:59→19:34)
[2017-11-08] MEDS: Aspirin 81 mg Enteric Coated Tablet PO SCH (08:59)
[2017-11-08] MEDS: Atorvastatin Calcium 10 MG TAB PO SCH (08:59)
[2017-11-08] MEDS: Acetaminophen/Codeine 30-300mg Tablet PO PRN ×2 (10:22→19:34)
[2017-11-08] MEDS: Famotidine 20 MG TAB PO PRN (19:34)
[2017-11-08] MEDS: Tamsulosin HCl 0.4 MG CAP PO SCH (19:34)
[2017-11-09] MEDS: Levothyroxine 150 MCG TAB PO SCH (05:25)
[2017-11-09] MEDS: Acetaminophen/Codeine 30-300mg Tablet PO PRN ×2 (05:28→11:42)
--- NOTE | 2017-11-09 06:07 | PDOC.FM ---
Addendum entered and electronically signed by Nerissa Hsu MD 11/09/17 11:16 : Plan: Acute urinary retention 2/2 neurogenic etiology vs. outlet obstruction - Currently resolved with rios and flomax - hx of GBM s/p several rounds of chemo and radiation - Seen by urology: pt elected to keep rios with addition of flomax. HTN - Currently controlled with home lisinopril- HCTZ held Constipation - Possibly neurogenic in context of new onset AUR - Continue colace, senokot Deconditioning 2/2 GBM - PT recommends continuation of PT/OT, has been showing improvement Hx of Glioblastoma multiforme - Pt is making progress with PT/OT and pt and family have decided on SNF placemnt - Social work consulted - PRN pain meds - Oncologist was notified Subclinical hypothryoidism - Continue synthroid HLD - Continue home Atorvastatin, ASA - Consider stopping Atorvastatin, studies show pts with cancer live longer in hospice when taken off Statins BELINDA 2/2 ARU, resolved - BMP from 11/04: gfr >90, creatinine at baseline at <1 - I/O, negative balance due to dec po intake. encouraged po intake. pt agreed to drink at least 8-10 8oz glasses today. If continues to experience negative fluid balance, consider restarting on mIVF DVT ppx: lovenox GI ppx: famotidine Code Status: DNR Dispo: pending placement Original Note: - Subjective Subjective: The patient had no events overnight. Waiting on SNF approval at the [place]. - Objective MAR Reviewed: Yes Vital Signs & Weight: Vital Signs (12 hours) Temp Pulse Resp BP Pulse Ox 11/08/17 20:00 98.4 F 73 18 137/84 95 Weight Weight 106.254 kg I&O: 11/07/17 11/08/17 11/09/17 06:59 06:59 06:59 Intake Total 1000 960 960 Output Total 2100 1900 3900 Balance -5770 -534 -8276 Result Diagrams: 11/02/17 03:28 11/04/17 07:50 <Nerissa Hsu - Last Filed: 11/09/17 10:04> - Objective Vital Signs & Weight: Vital Signs (12 hours) Temp Pulse Resp BP Pulse Ox 11/09/17 08:05 98.1 F 72 20 155/92 H 100 11/09/17 08:00 100 Weight Weight 106.254 kg I&O: 11/08/17 11/09/17 11/10/17 06:59 06:59 06:59 Intake Total 960 960 420 Output Total 1900 3900 Balance -940 -2940 420 Result Diagrams: 11/02/17 03:28 11/04/17 07:50 <Kylie Muñoz - Last Filed: 11/09/17 15:36> Phys Exam - Physical Examination Constitutional: NAD Respiratory: no wheezing, clear to auscultation bilateral Cardiovascular: RRR, no significant murmur Psychiatric: normal affect, A&O x 3 <Nerissa Hsu - Last Filed: 11/09/17 10:04> Dx/Plan (1) Acute urinary retention Code(s): R33.8 - OTHER RETENTION OF URINE Status: Acute (2) Generalized weakness Code(s): R53.1 - WEAKNESS Status: Acute (3) Hypertension Code(s): I10 - ESSENTIAL (PRIMARY) HYPERTENSION Status: Acute (4) Hyponatremia Code(s): E87.1 - HYPO-OSMOLALITY AND HYPONATREMIA Status: Acute (5) Ileus Code(s): K56.7 - ILEUS, UNSPECIFIED Status: Acute (6) Constipation Code(s): K59.00 - CONSTIPATION, UNSPECIFIED Status: Chronic (7) Glioblastoma multiforme Code(s): C71.9 - MALIGNANT NEOPLASM OF BRAIN, UNSPECIFIED Status: Chronic (8) Hypothyroid Code(s): E03.9 - HYPOTHYROIDISM, UNSPECIFIED Status: Chronic - Plan Plan: Acute urinary retention 2/2 neurogenic etiology vs. outlet obstruction - Currently resolved with rios and flomax - hx of GBM s/p several rounds of chemo and radiation - Seen by urology: pt elected to keep rios with addition of flomax. HTN - Currently controlled with home lisinopril- HCTZ held Constipation - Possibly neurogenic in context of new onset AUR - Continue colace, senokot Deconditioning 2/2 GBM - PT recommends continuation of PT/OT in hospice Hx of Glioblastoma multiforme - Pt has decided on hospice care, awaiting placement - Social work consulted - PRN pain meds - Oncologist was notified Subclinical hypothryoidism - Continue synthroid HLD - Continue home Atorvastatin, ASA - Consider stopping Atorvastatin, studies show pts with cancer live longer in hospice when taken off Statins BELINDA 2/2 ARU, resolved - BMP from 11/04: gfr >90, creatinine at baseline at <1 - I/O, negative balance due to dec po intake. encouraged po intake. pt agreed to drink at least 8-10 8oz glasses today. If continues to experience negative fluid balance, consider restarting on mIVF DVT ppx: lovenox GI ppx: famotidine Code Status: DNR Dispo: pending placement <Nerissa Hsu - Last Filed: 11/09/17 10:04> Attending Addendum - Attending Addendum Date/Time: 11/09/17 9330 I personally evaluated the patient and discussed the management with Dr. Hsu. I agree with the History, Examination, Assessment and Plan documented above with any addition or exceptions noted below. The patient's states he has had shoulder pain for days but the patient has denied pain each morning and this is the first morning that we have been told about it. Will get shoulder Xr on the right. He has had pain for over a month and it makes it difficult to manuever in bed. The patient has shown improvement with ambulation with physical therapy and they would like to proceed with long term placement to further improve strength. Dr. Hsu will examine shoulder after the XR. <Kylie Muñoz - Last Filed: 11/09/17 15:36>
[2017-11-09 08:06] VITALS: BP 155/92; TEMP 98.1
[2017-11-09] MEDS: Enoxaparin Sodium 40 MG/0.4 ML SYRINGE SC SCH (08:07)
[2017-11-09] MEDS: Atorvastatin Calcium 10 MG TAB PO SCH (08:08)
[2017-11-09] MEDS: Docusate 100 MG CAP PO SCH (08:08)
[2017-11-09] MEDS: Aspirin 81 mg Enteric Coated Tablet PO SCH (08:08)
--- NOTE | 2017-11-09 12:05 | RAD ---
LEFT SHOULDER RADIOGRAPHS 3 VIEWS: DATE: 11/09/17. PROVIDED CLINICAL HISTORY: Shoulder pain. FINDINGS: No evidence for a fracture. The glenohumeral relationship appears grossly normal. Subacromial space appears preserved. Visualized left lung field appears clear. IMPRESSION: No evidence for an acute osseous abnormality. If there is persistent clinical concern, conservative management and followup imaging are advised. POS: [facility]ALLY
--- NOTE | 2017-11-09 15:32 | ULT ---
LEFT UPPER EXTREMITY VENOUS DOPPLER: 11/09/17 PROVIDED CLINICAL HISTORY: Left arm edema. FINDINGS: Young scale and color doppler sonography with spectral analysis was performed of the left internal jug ular, subclavian, axillary, basilic, brachial, cephalic, radial and ulnar veins, demonstrating a norm al sonographic appearance to each. IMPRESSION: No sonographic evidence for left upper extremity venous thrombosis. POS: DORI
--- NOTE | 2017-11-10 02:40 | DIS-2 ---
DATE OF ADMISSION: 11/02/2017 DATE OF DISCHARGE: 11/09/2017 RESIDENT: Nerissa Hsu, PGY1. ADMITTING ATTENDING: Dr. Jerald Tyler. DISCHARGE ATTENDING: Dr. Kylie Muñoz. CONSULTATIONS: Urology. PROCEDURES: 1. Shoulder x-ray no acute abnormalities. 2. Vascular ultrasound, no evidence of upper extremity deep venous thrombosis. PRIMARY DIAGNOSIS: Acute urinary retention. SECONDARY DIAGNOSES: 1. Glioblastoma. 2. Hypertension. 3. Constipation. 4. Deconditioning. 5. Subclinical hypothyroidism. 6. Hyperlipidemia. 7. Acute kidney injury, resolved. DISCHARGE MEDICATIONS: 1. Tylenol No.3. q.6 hours p.r.n. 2. Aspirin 81 mg daily. 3. Atorvastatin 10 mg daily. 4. Colace 100 mg b.i.d. 5. Pepcid 20 mg b.i.d. 6. Ibuprofen 400 mg q.4 hours for p.r.n. 7. Levothyroxine 150 mcg daily. 8. Lisinopril and hydrochlorothiazide 10 mg/12.5 mg two tabs p.o. daily. 9. Zofran 8 mg q.8 hours p.r.n. 10. Flomax 0.4 mg at bedtime. DISCONTINUED MEDICATIONS: None. HISTORY OF PRESENT ILLNESS AND HOSPITAL COURSE: Mr. Downs is a 62-year-old male with a past medica l history of glioblastoma status post craniectomy x2 with several rounds of chemo and brain radiation , presenting with urinary retention, with a long discussion with Urology. He has decided to start an d continue Flomax daily and leave catheter in for comfort care. The urinary retention was thought to be related to glioblastoma versus outlet obstruction. A voiding trial was not done to see if the Fl omax was effective. Constipation was treated with Colace and Senokot. Deconditioning. PT evaluated patient for deconditioning and recommend continuation of PT, OT. Patient showed with improvement th roughout the course of the stay. For his hypertension, hyperlipidemia, and hypothyroidism, these wer e controlled with his home medications. He also had an acute kidney injury that resolved with fluids . DISPOSITION: Stable. DISCHARGE INSTRUCTIONS: 1. Location: SNF. 2. Diet: Regular. 3. Activity: No restrictions. 4. Follow up with PCP within 3-7 days.
== END 2017-11-09 16:06 | DRG 696 ==
LOC: ERS 02:58 → T4-B 05:30
PROVIDERS: ADMIT Emergency Medicine; ATTEND Emergency Medicine
DX: R33.9 Retention of urine, unspecified (principal); C71.9 Malignant neoplasm of brain, unspecified; N17.9 Acute kidney failure, unspecified; K56.7 Ileus, unspecified; E87.1 Hypo-osmolality and hyponatremia; I10 Essential (primary) hypertension; E03.9 Hypothyroidism, unspecified; E78.5 Hyperlipidemia, unspecified; Z92.21 Personal history of antineoplastic chemotherapy; Z92.3 Personal history of irradiation; K58.1 Irritable bowel syndrome with constipation; Z66 Do not resuscitate; R53.1 Weakness; Z79.899 Other long term (current) drug therapy
CPT/HCPCS: 36415; 36416; 51702; 80048; 80053; 81003; 83605; 84439; 84443; 84481; 85025; 93005; 96360; G8978-GP-CM; G8979-GP-CK; G8987-GO-CL; G8988-GO-CJ; J1650; J2405